=== PATIENT | female | born 2005 | race Caucasian/White ===

== ENCOUNTER 2024-12-02 14:42 | Emergency (ER) | payer MEDICAID, OTHER ==
[~2024-12-02] VITALS: Ht 167.6 cm; Wt 65.8 kg
[2024-12-02] MEDS ORDERED: NALOXONE HCL 0.4 MG/ML AMPUL ONE (15:19)
[2024-12-02 15:25] LABS: PLATELET COUNT (AUTO) 360 K/uL (150-450); RED BLOOD CELL COUNT(AUTO) 4.56 MIL/uL (4.0-5.2); RED CELL DISTRIBUTION WIDTH 14.2 % (11.5-15.0); WHITE BLOOD COUNT (AUTO) 5.6 K/uL (4.3-11.0)
[2024-12-02 15:32] LABS: CALCIUM, SERUM 8.4 mg/dL (8.5-10.1); CREATININE 0.5 mg/dL (0.6-1.3); SODIUM SERUM 145 mmol/L (136-145); UREA NITROGEN, BLOOD 10 mg/dL (7-18)
[2024-12-02] MEDS: IV NS 0.9% 1,000 ML BAG IV ONE (15:36)
[2024-12-02] MEDS: NALOXONE HCL 0.4 MG/ML AMPUL IV ONE (15:37)
[2024-12-02 15:38] LABS: ASPARTATE AMINOTRANSFERASE 30 U/L (15-37); TOTAL PROTEIN, SERUM 7.8 g/dL (6.4-8.2)
[2024-12-02 18:12] LABS: APPEARANCE,URINE CLEAR (CLEAR); BLOOD, URINE Trace-lysed Ery/uL (NEGATIVE); LEUKOCYTE ESTERASE ,URINE Negative (NEGATIVE); NITRITE, URINE NEGATIVE (NEGATIVE); UGLUCOSE Negative (NEGATIVE)
[2024-12-02 18:16] LABS: ADD URINE CULTURE NO; PREGNANCY TEST URINE QUAL NEGATIVE (NEGATIVE); SQUAMOUS EPITHELIAL CELL,UR Few /HPF (None Seen)
[2024-12-02 18:20] LABS: AMPHETAMINE, URINE NEGATIVE (NEGATIVE); BARBITURATE, URINE NEGATIVE (NEGATIVE); BENZODIAZEPINE, URINE NEGATIVE (NEGATIVE); CANNABINOID, URINE NEGATIVE (NEGATIVE); COCCAINE, URINE NEGATIVE (NEGATIVE); OPIATE, URINE NEGATIVE (NEGATIVE)
[2024-12-02] MEDS ORDERED: ONDANSETRON 4 MG TAB.RAPDIS ONE ×2 (19:06→19:34)
[2024-12-02] MEDS: ONDANSETRON 4 MG TAB.RAPDIS SL ONE ×2 (19:10→19:36)
[2024-12-02 20:48] VITALS: BP 114/69; TEMP 98.3; O2SAT 97
== END 2024-12-02 20:49 | disposition home or self-care (01) ==
LOC: ER 14:45
DX: F10.129 Alcohol abuse with intoxication, unspecified (principal); Z79.899 Other long term (current) drug therapy; Y90.8 Blood alcohol level of 240 mg/100 ml or more
CPT/HCPCS: 99284; 96374; 96361; 85025; 80048; 80076; 84703; 81001; 36415; 80143; 80320; 80307; J2312; J7030; Q0162; G0480